=== PATIENT | male | born 1975 | race Caucasian/White ===

== ENCOUNTER 2018-10-22 20:09 | Emergency (ER) | payer SELFPAY ==
[2018-10-22 20:16] VITALS: BP 113/78; PULSE 60; TEMP 98.3; BMI 24.0
--- NOTE | 2018-10-22 20:42 | PDOC ---
History of Present Illness - General History Source: Patient Exam Limitations: No Limitations - History of Present Illness Initial Comments: 10/22/18 20:43 The patient is a 43 year old male, who presents to the ED complaining of right side plank pain for the past week. He describes his pain as ranging from mild to moderate, without radiation or modifying factors. He reports that he has been taking 2-3 tablets of aleve, with minimal to no relief of his symptoms. He notes that he is physically active and jogs frequently. He denies any kind of injuries. The patient denies chest pain, shortness of breath, headache and dizziness. Denies fever, chills, nausea, vomiting, diarrhea or constipation. Denies dysuria , frequency, urgency and hematuria. PAST MEDICAL HISTORY: no significant history PAST SURGICAL HISTORY: no significant history FAMILY HISTORY: no pertinent history SOCIAL HISTORY: Pt lives with family and is employed. MEDICATIONS: reviewed ALLERGIES: As per nursing notes General: No fevers or chills, no weakness, no weight loss HEENT: No change in vision. No sore throat,. No ear pain CardioVascular: No chest pain or shortness of breath Respiratory:No cough, or wheezing. Gastrointestinal: (+) Right sided flank pain. no nausea, vomiting, diarrhea or constipation, No rectal bleeding Genitourinary: No dysuria, hematuria, or frequency Musculoskeletal: No joint or muscle pain or swelling Neurologic: No headache, vertigo, dizziness or loss of consciousness Psychiatric: nor depression Skin: No rashes or easy bruising Endocrine: no increased thirst or abnormal weight change Allergic: no skin or latex allergy All other systems reviewed and normal GENERAL: The patient is awake, alert, and fully oriented, in no acute distress. HEAD: Normal with no signs of trauma. EYES: Pupils equal, round and reactive to light, extraocular movements intact, sclera anicteric, conjunctiva clear. ABDOMEN: No tenderness on right flank or Right CVA. Denie any abdominal tenderness. EXTREMITIES: Normal range of motion, no edema. NEUROLOGICAL: Normal speech, normal gait. PSYCH: Normal mood, normal affect. SKIN: Warm, Dry, normal turgor, no rashes or lesions noted. <Barak Johnson - Last Filed: 10/22/18 20:43> - General History Source: Patient Exam Limitations: No Limitations - History of Present Illness Initial Comments: 10/22/18 22:31 A portion of this note was documented by scribe services under my direction. I have reviewed the details of the note, within reason, and agree with the documentation with the following case summary and management plan written by me. Patient treated in the ED. Nursing notes are reviewed and incorporated into the medical decision-making. Vital signs reviewed. Assessment and plan: This is a 43-year-old male who comes in complaining of right flank pain. Patient had a normal exam and his urine did show a trace amount of blood so a CAT scan was done to rule out stone. Patient had no kidney stone with a normal CAT scan and was discharged home. Pain most likely is skeletal muscle as he said it only hurts when he runs and moves and does not bother him of the rest of the time. Patient was told to take Motrin or Tylenol for the pain <Julieta Feng I - Last Filed: 10/22/18 22:32> - General Chief Complaint: Pain Stated Complaint: RT FLANK PAIN Time Seen by Provider: 10/22/18 20:14 Past History <Barak Johnson - Last Filed: 10/22/18 20:43> - Past Medical History COPD: No - Suicide/Smoking/Psychosocial Hx Smoking History: Never smoked Hx Alcohol Use: No Drug/Substance Use Hx: No <Julieta Feng I - Last Filed: 10/22/18 22:32> - Past Medical History Allergies/Adverse Reactions: Allergies Allergy/AdvReac Type Severity Reaction Status Date / Time No Known Allergies Allergy Unverified 10/22/18 20:12 Home Medications: Ambulatory Orders NK [No Known Home Medication] 10/22/18 *Physical Exam - Vital Signs Last Vital Signs Temp Pulse Resp BP Pulse Ox 98.3 F 60 16 113/78 100 10/22/18 20:13 10/22/18 20:13 10/22/18 20:13 10/22/18 20:13 10/22/18 20:13 <Barak Johnson - Last Filed: 10/22/18 20:43> - Vital Signs Last Vital Signs Temp Pulse Resp BP Pulse Ox 98.3 F 60 16 113/78 100 10/22/18 20:13 10/22/18 20:13 10/22/18 20:13 10/22/18 20:13 10/22/18 20:13 <Julieta Feng I - Last Filed: 10/22/18 22:32> Moderate Sedation - Procedure Monitoring Vital Signs: Procedure Monitoring Vital Signs Temperature 98.3 F 10/22/18 20:13 Pulse Rate 60 10/22/18 20:13 Respiratory Rate 16 10/22/18 20:13 Blood Pressure 113/78 10/22/18 20:13 O2 Sat by Pulse Oximetry (%) 100 10/22/18 20:13 <Barak Johnson - Last Filed: 10/22/18 20:43> - Procedure Monitoring Vital Signs: Procedure Monitoring Vital Signs Temperature 98.3 F 10/22/18 20:13 Pulse Rate 60 10/22/18 20:13 Respiratory Rate 16 10/22/18 20:13 Blood Pressure 113/78 10/22/18 20:13 O2 Sat by Pulse Oximetry (%) 100 10/22/18 20:13 <Julieta Feng I - Last Filed: 10/22/18 22:32> *DC/Admit/Observation/Transfer - Attestations Scribe Attestion: 10/22/18 20:43 Documentation prepared by Barak Johnson, acting as medical center director for Julieta Feng MD <Barak Johnson - Last Filed: 10/22/18 20:43> - Discharge Dispostion Decision to Admit order: No <Julieta Feng I - Last Filed: 10/22/18 22:32> Diagnosis at time of Disposition: Right flank pain - Discharge Dispostion Disposition: HOME Condition at time of disposition: Stable - Patient Instructions Additional Instructions: For the pain U can take Tylenol or Motrin as directed on the bottle. Return to the emergency department immediately with ANY new, persistent or worsening symptoms. Continue any medications as previously prescribed by your physician. You should follow up with your primary doctor as soon as possible regarding today's emergency department visit. . Please make sure your doctor reviews the results of your emergency evaluation. Thank you for coming to the Emergency Department today for your care. It was a pleasure to see you today. Please note that your evaluation is INCOMPLETE until you follow-up with your doctor.
[2018-10-22 20:51] LABS: URINE APPEARANCE Clear; URINE BILIRUBIN Negative (NEGATIVE); URINE COLOR Yellow; URINE GLUCOSE (UA) Negative (NEGATIVE); URINE KETONE Negative (NEGATIVE); URINE LEUK ESTERASE Negative (NEGATIVE); URINE NITRITE Negative (NEGATIVE); URINE PROTEIN Negative (NEGATIVE); URINE UROBILINOGEN 0.2 (0.2-1.0)
[2018-10-22 21:07] LABS: URINE RBC 0-2 /hpf (0-3); URINE WBC 0-1 (0-2)
[2018-10-22 21:08] LABS: URINE BACTERIA NONE SEEN /hpf (NEGATIVE)
== END 2018-10-22 22:34 | disposition home or self-care (01) ==
LOC: FER 20:09
DX: R10.31 Right lower quadrant pain (principal)
CPT/HCPCS: 74176-TC; 81003; 81015; 99282-25

== ENCOUNTER 2022-04-06 09:25 | Emergency (ER) | payer SELFPAY ==
[2022-04-06 09:35] VITALS: BP 120/72; PULSE 58; RESP 16; TEMP 97.3; BMI 22.8
[2022-04-06] MEDS ORDERED: DIPHTH,PERTUSS(ACELL),TET 0.5 ML DISP.SYRIN IM ONE ×2 (10:01→10:07)
[2022-04-06] MEDS ORDERED: IBUPROFEN 400 MG TABLET (FP) PO ONE ×2 (10:21→10:23)
== END 2022-04-06 10:24 | disposition home or self-care (01) ==
LOC: FER 09:25
PROC: 3E0234Z Introduction of Serum, Toxoid and Vaccine into Muscle, Percutaneous Approach (ICD-10-PCS; principal; 2022-04-06)
DX: S90.512A Abrasion, left ankle, initial encounter (principal); S93.402A Sprain of unspecified ligament of left ankle, initial encounter; W22.09XA Striking against other stationary object, initial encounter
CPT/HCPCS: 73610-TC-LT-FY; 90715; 99284-25

== ENCOUNTER 2022-04-13 19:39 | Emergency (ER) | payer SELFPAY ==
[2022-04-13 19:48] VITALS: BP 120/83; PULSE 60; RESP 16; TEMP 99.3; BMI 22.8
[2022-04-13] MEDS ORDERED: SULFAMETHOXAZOLE/TRIMETHOPRIM 800MG/160MG D.S. TABLET PO ONE (19:50)
[2022-04-13] MEDS ORDERED: SULFAMETHOXAZOLE/TRIMETHOPRIM 800MG/160MG D.S. TABLET ONE (19:53)
== END 2022-04-13 19:59 | disposition home or self-care (01) ==
LOC: FER 19:39
DX: S99.911A Unspecified injury of right ankle, initial encounter (principal)
CPT/HCPCS: 99283-25